=== PATIENT | female | born 1980 ===

== ENCOUNTER 2021-06-19 09:34 | Emergency (ER) | payer MEDICARE ==
[2021-06-19] MEDS ORDERED: Sodium Chloride 0.9% 10 ML Syringe FLUSH PRN (10:13)
[2021-06-19] MEDS ORDERED: Sodium Chloride 0.9% 2.5 ML Syringe FLUSH PRN (10:13)
[2021-06-19] MEDS ORDERED: Pantoprazole 40 MG/10 ML Syringe IVPUSH ONE (10:16)
[2021-06-19] MEDS ORDERED: Alum Hydro/Mag Hydro/Simeth XS 15 ML, Metoclopramide 5 MG, Lidocaine 2% 5 ML PO ONE ×3 (10:16)
--- NOTE | 2021-06-19 10:38 | EDM.PDOC ---
ED HPI GENERAL MEDICAL PROBLEM - General Chief Complaint: Abdominal Pain Stated Complaint: CHEST IRRITABILITY/ABDOMINAL PAIN Time Seen by Provider: 06/19/21 09:35 Source of Information: Reports: Patient History Limitations: Reports: No Limitations - History of Present Illness INITIAL COMMENTS - FREE TEXT/NARRATIVE: HISTORY AND PHYSICAL: History of present illness: Patient is a 41-year-old female who presents to the ED for epigastric pain x7 days with associated heartburn. She reports pain as constant and, interferes with sleep, radiates around right side and into sternum. Patient describes the pain as sharp when it radiates into the sternum. Reports surgical history of cholecystectomy 3 years ago. Patient states when her symptoms initially started, she was taking Tums and this was helping for the first few days. Patient states that starting last night, Tums were no longer helping her symptoms. Patient also has had a hysterectomy and therefore not . Pat shin reports to tobacco use and when she is trying to stop, denies alcohol use, denies current illicit drug use. Patient denies fever, chills, shortness of breath, or cough. Denies headache, neck stiff ness, change in vision, syncope, or near syncope. Denies nausea, vomiting, diarrhea, constipation, or dysuria. Has not noted any blood in urine or stool. Patient has been eating and drinking appropriately. Review of systems: As per history of present illness and below otherwise all systems reviewed and negative. Past medical history: As per history of present illness and as reviewed below otherwise noncontributory. Surgical history: As per history of present illness and as reviewed below otherwise noncontributory. Social history: See social history for further information Family history: As per history of present illness and as reviewed below otherwise noncontributory. Physical exam: General: Patient is alert, oriented, and in no acute distress. Patient sitting comfortably on exam table. Vitals stable and reviewed by me. HEENT: Atraumatic, normocephalic, pupils equal and reactive bilaterally, negative for conjunctival pallor or scleral icterus, mucous membranes moist, th roat clear, neck supple, nontender, trachea midline. No drooling or trismus noted. No meningeal signs. No hot potato voice noted. Lungs: Clear to auscultation, breath sounds equal bilaterally, chest nontender. Heart: S1S2, regular rate and rhythm without overt murmur Abdomen: Soft, nondistended, non tender. Negative for masses or hepatosplenomegaly. Negative for costovertebral tenderness. Pelvis: Stable nontender. Genitourinary: Deferred. Rectal: Deferred. Skin: Intact, warm, dry. No lesions or rashes noted. Extremities: Atraumatic, negative for cords or calf pain. Neurovascular unremarkable. Neuro: Awake, alert, oriented. Cranial nerves II through XII unremarkable. Cerebellum unremarkable. Motor and sensory unremarkable throughout. Exam nonfocal. Medical Decision Making: Patient is a 41-year-old female that presents to ED for epigastric pain x3 days. Upon arrival to the ED patient is vitally stable and well appearing on exam. Examination of the abdomen is nontender to palpation and exam is otherwise unremarkable. Will obtain basic labwork, provide GI cocktail/Protonix as she has had associated heartburn and reassess/ See Dr. Pinon dictation for specific EKG interpretation. Otherwise, NSR without STEMI or acute changes. Mild derangements of CBC and CMP unremarkable. Lipase WNL. Troponin negative. Chest x-ray showed no evidence of active pulmonary disease. Upon reevaluation of patient, she expresses significant improvement of her symptoms with a GI cocktail and therapeutics given today in the emergency room. Strict return precautions thoroughly discussed with patient. Discussed importance for follow-up with a primary care provider. Voices understanding and is agreeable to plan of care. Denies any further questions or concerns at this time. Diagnostics: CBC, CMP, lipase, EKG, troponin, chest x-ray Therapeutics: GI Cocktail, Protonix Prescription: None Impression: Epigastric abdominal pain Heartburn Gastritis Plan: 1. I would like you to get [id number] Prilosec and take this for 2 weeks as directed according to the instruction label. You can also get any lswo-[id number] antacid as directed for symptomatic relief. 2. Do not take any NSAID medication such as ibuprofen, naproxen, Aleve, or aspirin as this can further upset stomach lining as discussed. However, you can take acetaminophen/Tylenol as directed and as discussed. 3. Follow-up with a primary care provider as discussed. Return to the ED as needed and as discussed. Definitive disposition and diagnosis as appropriate pending reevaluation and review of above. epigastric, chest, under right breast Pain Score (Numeric/FACES): 9 - Related Data Allergies Allergy/AdvReac Type Severity Reaction Status Date / Time fentanyl Allergy Swelling Verified 06/19/21 09:44 Home Meds: Home Meds . [No Known Home Meds] 06/19/21 [History] Past Medical History - Infectious Disease History Infectious Disease History: Reports: Chicken Pox, Novel Coronavirus - Past Surgical History GI Surgical History: Reports: Cholecystectomy Female Surgical History: Reports: Section, Hysterectomy Social & Family History - Family History Family Medical History: No Pertinent Family History - Tobacco Use Tobacco Use Status *Q: Current Every Day Tobacco User Years of Tobacco use: 25 Packs/Tins Daily: 0.3 - Recreational Drug Use Recreational Drug Use: No ED ROS GENERAL - Review of Systems Review Of Systems: Comprehensive ROS is negative, except as noted in HPI. ED EXAM, GENERAL - Physical Exam Exam: See Below (see dictation) Course - Vital Signs Last Recorded V/S: Last Vital Signs Temp 96.9 F 06/19/21 09:42 Pulse 64 06/19/21 09:42 Resp 16 06/19/21 09:42 BP 146/89 H 06/19/21 09:42 Pulse Ox 98 06/19/21 09:42 - Orders/Labs/Meds Orders: Active Orders 24 hr Category Date Time Status UA RFX BRIANNA AND CULT IF INDIC [URIN] Stat Lab 06/19/21 10:13 Ordered Sodium Chloride 0.9% [Saline Flush] Med 06/19/21 10:13 Active 10 ml FLUSH ASDIRECTED PRN Sodium Chloride 0.9% [Saline Flush] Med 06/19/21 10:13 Active 2.5 ml FLUSH ASDIRECTED PRN Saline Lock Insert [OM.PC] Stat Oth 06/19/21 10:13 Ordered Medication Orders Sodium Chloride (Sodium Chloride 0.9% 10 Ml Syringe) 10 ml FLUSH ASDIRECTED PRN PRN Reason: Keep Vein Open Last Admin: 06/19/21 10:18 Dose: 10 ml Documented by: ANDRAE Sodium Chloride (Sodium Chloride 0.9% 2.5 Ml Syringe) 2.5 ml FLUSH ASDIRECTED PRN PRN Reason: Keep Vein Open Last Admin: 06/19/21 10:18 Dose: 2.5 ml Documented by: ANDRAE Labs: Laboratory Tests 06/19/21 06/19/21 Range/Units 09:50 09:50 WBC 10.07 (4.0-11.0) K/uL RBC 5.05 (4.30-5.90) M/uL Hgb 15.0 (12.0-16.0) g/dL Hct 44.8 (36.0-46.0) % MCV 88.7 (80.0-98.0) fL MCH 29.7 (27.0-32.0) pg MCHC 33.5 (31.0-37.0) g/dL RDW Std Deviation 42.5 (28.0-62.0) fl RDW Coeff of Michell 13 (11.0-15.0) % Plt Count 330 (150-400) K/uL MPV 11.30 (7.40-12.00) fL Neut % (Auto) 63.6 (48.0-80.0) % Lymph % (Auto) 26.8 (16.0-40.0) % [place] % (Auto) 6.2 (0.0-15.0) % Eos % (Auto) 2.8 (0.0-7.0) % Baso % (Auto) 0.6 (0.0-1.5) % Neut # (Auto) 6.4 H (1.4-5.7) K/uL Lymph # (Auto) 2.7 H (0.6-2.4) K/uL [place] # (Auto) 0.6 (0.0-0.8) K/uL Eos # (Auto) 0.3 (0.0-0.7) K/uL Baso # (Auto) 0.1 (0.0-0.1) K/uL Nucleated RBC % 0.0 /100WBC Nucleated RBCs # 0 K/uL Sodium 135 L (136-145) mmol/L Potassium 4.3 (3.5-5.1) mmol/L Chloride 104 (98-107) mmol/L Carbon Dioxide 22.6 (21.0-32.0) mmol/L BUN 9 (7.0-18.0) mg/dL Creatinine 0.7 (0.6-1.0) mg/dL Est Cr Clr Drug Dosing 93.17 mL/min Estimated GFR (MDRD) > 60.0 ml/min Glucose 108 H (74-106) mg/dL Calcium 9.3 (8.5-10.1) mg/dL Total Bilirubin 0.6 (0.2-1.0) mg/dL AST 14 L (15-37) IU/L ALT 22 (14-63) IU/L Alkaline Phosphatase 70 (46-116) U/L Troponin I < 0.050 (0.000-0.056) ng/mL Total Protein 7.0 (6.4-8.2) g/dL Albumin 3.3 L (3.4-5.0) g/dL Globulin 3.7 (2.6-4.0) g/dL Albumin/Globulin Ratio 0.9 (0.9-1.6) Lipase 70 L (73-393) U/L Meds: Medications Generic Name Dose Route Start Last Admin Trade Name Freq PRN Reason Stop Dose Admin Sodium Chloride 10 ml 06/19/21 10:13 06/19/21 10:18 Sodium Chloride 0.9% 10 Ml Syringe FLUSH 10 ml ASDIRECTED PRN Administration Keep Vein Open Sodium Chloride 2.5 ml 06/19/21 10:13 06/19/21 10:18 Sodium Chloride 0.9% 2.5 Ml Syringe FLUSH 2.5 ml ASDIRECTED PRN Administration Keep Vein Open Discontinued Medications Generic Name Dose Route Start Last Admin Trade Name Freq PRN Reason Stop Dose Admin Alum Tuttle/Mag Tuttle/Simeth XS 0 ml 06/19/21 10:16 06/19/21 10:23 15 ml/ Metoclopramide HCl 5 PO 06/19/21 10:17 1 each mg/ Lidocaine HCl 5 ml ONETIME ONE Administration Pantoprazole Sodium 80 mg 06/19/21 10:16 06/19/21 10:24 Pantoprazole 40 Mg/10 Ml Syringe IVPUSH 06/19/21 10:17 80 mg ONETIME ONE Administration Departure - Departure Time of Disposition: 12:20 Disposition: Home, Self-Care 01 Clinical Impression: Gastritis, Epigastric abdominal pain, Heartburn - Discharge Information Referrals: PCP,None [Primary Care Provider] - Forms: ED Department Discharge Additional Instructions: The following information is given to patients seen in the emergency department who are being discharged to home. This information is to outline your options for follow-up care. We provide all patients seen in our emergency department with a follow-up referral. The need for follow-up, as well as the timing and circumstances, are variable depending upon the specifics of your emergency department visit. If you don't have a primary care physician on staff, we will provide you with a referral. We always advise you to contact your personal physician following an emergency department visit to inform them of the circumstance of the visit and for follow-up with them and/or the need for any referrals to a consulting specialist. The emergency department will also refer you to a specialist when appropriate. This referral assures that you have the opportunity for follow-up care with a specialist. All of these measure are taken in an effort to provide you with optimal care, which includes your follow-up. Under all circumstances we always encourage you to contact your private physician who remains a resource for coordinating your care. When calling for follow-up care, please make the office aware that this follow-up is from your recent emergency room visit. If for any reason you are refused follow-up, please contact the [facility] Emergency Department at and asked to speak to the emergency department charge nurse. [facility] [address] [place] [address] [place] [address] 1. I would like you to get [id number] Prilosec and take this for 2 weeks as directed according to the instruction label. You can also get any mymv-btl-ihweabp antacid as directed for symptomatic relief. 2. Do not take any NSAID medication such as ibuprofen, naproxen, Aleve, or aspirin as this can further upset stomach lining as discussed. However, you can take acetaminophen/Tylenol as directed and as discussed. 3. Follow-up with a primary care provider as discussed. Return to the ED as needed and as discussed. Sepsis Event Note (ED) - Evaluation Sepsis Screening Result: No Definite Risk - Focused Exam Vital Signs: Vital Signs Temp Pulse Resp BP Pulse Ox 06/19/21 09:42 96.9 F 64 16 146/89 H 98 - My Orders Last 24 Hours: My Active Orders 06/19/21 10:13 UA RFX BRIANNA AND CULT IF INDIC [URIN] Stat Sodium Chloride 0.9% [Saline Flush] 10 ml FLUSH ASDIRECTED PRN Sodium Chloride 0.9% [Saline Flush] 2.5 ml FLUSH ASDIRECTED PRN Saline Lock Insert [OM.PC] Stat - Assessment/Plan Last 24 Hours: My Active Orders 06/19/21 10:13 UA RFX BRIANNA AND CULT IF INDIC [URIN] Stat Sodium Chloride 0.9% [Saline Flush] 10 ml FLUSH ASDIRECTED PRN Sodium Chloride 0.9% [Saline Flush] 2.5 ml FLUSH ASDIRECTED PRN Saline Lock Insert [OM.PC] Stat
--- NOTE | 2021-06-19 10:41 | CR ---
INDICATION: Epigastric and chest pain COMPARISON: None TECHNIQUE: Single-view portable chest radiograph FINDINGS: TUBES AND LINES: None. HEART AND MEDIASTINUM: The heart size is normal. The mediastinal contour appears normal for patient age. LUNGS AND PLEURAL SPACES: The lungs appear normal.The pleural spaces are unremarkable. OSSEOUS STRUCTURES: Age-appropriate appearance. No acute focal finding. IMPRESSION: No evidence of active pulmonary disease. Dictated by Haim Krishnamurthy MD @ 06/19/2021 10:39:14 AM (Electronically Signed)
[2021-06-19 11:32] LABS: BLOOD UREA NITROGEN,BUN 9 mg/dL (7.0-18.0); CARBON DIOXIDE,CO2 22.6 mmol/L (21.0-32.0); CHLORIDE,CL 104 mmol/L (98-107); GLUCOSE RANDOM 108 mg/dL (74-106); LIPASE 70 U/L (73-393); POTASSIUM,K 4.3 mmol/L (3.5-5.1); SODIUM,NA 135 mmol/L (136-145)
--- NOTE | 2021-06-19 12:45 | PCM.EKG ---
#1 Interpretation EKG Date: 06/19/21 Time: 09:36 Rhythm: NSR Rate (Beats/Min): 68 [place]: Normal P-Wave: Present QRS: Normal ST-T: Normal QT: Normal [place]/PQ Interval: 147 EKG Interpretation Comments: Normal EKG
== END 2021-06-19 13:00 | disposition home or self-care (01) ==
LOC: MW.ED 09:34
DX: K29.70 Gastritis, unspecified, without bleeding (principal); Z86.16 Personal history of COVID-19; Z88.6 Allergy status to analgesic agent; Z72.0 Tobacco use
CPT/HCPCS: 36415; 71045; 80053; 83690; 84484; 85025; 93005; 96374; 99284; A9270; C9113